=== PATIENT | male | born 2000 | race Caucasian/White ===

== ENCOUNTER 2018-04-05 11:59 | Emergency (ER) | payer MEDICAID ==
[2018-04-05 12:05] VITALS: BP 118/64
--- NOTE | 2018-04-05 12:15 | ER Document Report ---
HPI - HPI Pain Level: 3 Vertical Provider Document - INFECTION CONTROL TRAVEL OUTSIDE OF THE [place] IN LAST 30 DAYS: No Course - Vital Signs Vital signs: Temp Pulse Resp BP Pulse Ox 98.0 F 59 L 16 118/64 97 04/05/18 12:04 04/05/18 12:04 04/05/18 12:04 04/05/18 12:04 04/05/18 12:04 Discharge - Discharge Referrals: LISA HUMPHREYS MD [Primary Care Provider] - Follow up as needed
[2018-04-05] MEDS ORDERED: KETOROLAC TROMETHAMINE 60 MG/2 ML SDV IM ONE (12:22)
--- NOTE | 2018-04-05 12:29 | ER Document Report ---
ED General - General Chief Complaint: Knee Pain Stated Complaint: RIGHT KNEE PAIN Time Seen by Provider: 04/05/18 12:15 Mode of Arrival: Ambulatory Information source: Patient, Relative - sister TRAVEL OUTSIDE OF THE [place] IN LAST 30 DAYS: No - HPI Notes: 18-year-old male presents the ED with complaints of sudden onset right knee pain status post hearing a pop yesterday while he was fishing. Denies any trauma or any injury. Has not tried any icing, elevation, heat because he states "this never works for me". Pain is 6 out of 10, throbbing achy. Patient does have crutches at home which she did use yesterday. Unable to bear full weight. Denies any numbness or tingling down bilateral lower extremities. Reports he has injured his knee previously. Denies any fevers or chills. Worse with ambulation, better with rest. - Related Data Allergies/Adverse Reactions: No Known Allergies Allergy (Unverified 04/05/18 12:00) Past Medical History - General Information source: Patient - Social History Smoking Status: Unknown if Ever Smoked Family History: Reviewed & Not Pertinent Review of Systems - Review of Systems Constitutional: No symptoms reported EENT: No symptoms reported Cardiovascular: No symptoms reported Respiratory: No symptoms reported Gastrointestinal: No symptoms reported Genitourinary: No symptoms reported Male Genitourinary: No symptoms reported Musculoskeletal: See HPI Skin: No symptoms reported Hematologic/Lymphatic: No symptoms reported Neurological/Psychological: No symptoms reported Physical Exam - Vital signs Vitals: Temp Pulse Resp BP Pulse Ox 98.0 F 59 L 16 118/64 97 04/05/18 12:04 04/05/18 12:04 04/05/18 12:04 04/05/18 12:04 04/05/18 12:04 - Notes Notes: PHYSICAL EXAMINATION: GENERAL: Well-appearing, well-nourished and in no acute distress. HEAD: Atraumatic, normocephalic. EYES: Pupils equal round and reactive to light, extraocular movements intact, sclera anicteric, conjunctiva are normal. ENT: Nares patent, oropharynx clear without exudates. Moist mucous membranes. NECK: Normal range of motion, supple without lymphadenopathy LUNGS: Breath sounds clear to auscultation bilaterally and equal. No wheezes rales or rhonchi. HEART: Regular rate and rhythm without murmurs ABDOMEN: Soft, nontender, nondistended abdomen. No guarding, no rebound. No masses appreciated. Musculoskeletal: Normal range of motion, no pitting or edema. No cyanosis. right knee pain with palpation to lateral aspect of knee with noted swelling. negative tere's sign. anterior and posterior drawer test negative. noted pain with medial and lateral aspect. Dtr + 2 in BLE. Full motor and sensory function to BLE equally. No open wounds. No induration or drainage. Strength 5 out of 5 bilaterally equally. Ankle examination normal. Squeeze test negative. Hip examination normal. Pulses + 2 bilaterally and equally.negative squeeze bilaterally and equally. NEUROLOGICAL: Cranial nerves grossly intact. Normal speech, normal gait. Normal sensory, motor exams PSYCH: Normal mood, normal affect. SKIN: Warm, Dry, normal turgor, no rashes or lesions noted. Course - Re-evaluation Re-evalutation: 04/05/18 12:24 Afebrile, vitals stable no distress 18-year-old male presents for evaluation of right knee pain with sudden onset. Right knee x-ray negative for wet read. Patient given 60 mg of Toradol IM,. Patient states he does have crutches at home. Denies any direct trauma or injury to the knee. Advised patient he likely sprained knee, advised to take ibuprofen and Tylenol rotating basis, apply heat 20 minutes on 20 minutes off several times a day. If symptoms remain progressive to follow-up with product info specialist, referral given. I have reevaluated this patient multiple times and no significant life threatening changes, no signs of toxicity, sepsis or peritonitis are noted. The patient and I have discussed the diagnosis and risks, and we agree with discharging home and close follow-up. We also discussed returning to the Emergency Department immediately if new or worsening symptoms occur with the understanding that symptoms and presentations can change. At this time will discharge with return precautions and follow-up recommendations. Verbal discharge instructions given a the bedside and opportunity for questions given. We have discussed the symptoms which are most concerning (e.g., weakness in legs , n/t in legs, changing or worsening pain) that necessitate immediate return. Medication warnings reviewed. All questions and concerns answered by this provider. Patient is in agreement with this plan and has verbalized understanding of return precautions and the need for primary care follow-up in the next 24-72 hours. Patient verbalized understanding of plan of care and agree with plan of care. - Vital Signs Vital signs: Temp Pulse Resp BP Pulse Ox 98.0 F 59 L 16 118/64 97 04/05/18 12:04 04/05/18 12:04 04/05/18 12:04 04/05/18 12:04 04/05/18 12:04 Discharge - Discharge Clinical Impression: Right knee sprain Qualifiers: Encounter type: initial encounter Involved ligament of knee: other ligament Qualified Code(s): S83.8X1A - Sprain of other specified parts of right knee, initial encounter Condition: Good Instructions: Use of Crutches ([facility]), Ice & Elevation ([facility]), Knee Immobilizing Splint ([facility]), Sprained Knee ([facility]) Additional Instructions: You do not have evidence of a fracture on today's xrays. Your pain is likely to do soft tissue swelling and inflammation. This can last up to 6 weeks before completely resolving. You should continue to apply ice to the area regularly, keep the affected area elevated, and take ibuprofen 600mg every 6 hours as needed for pain. Please return if you have worsening pain, weakness, numbness, notice increasing redness or swelling to the area, develop a fever, or have any other symptoms that are concerning to you. Please follow up with the [facility] [address] [place] [id number] Return immediately for any new or worsening symptoms. Follow up with primary care provider, call tomorrow to make followup appointment. Prescriptions: RX: Ibuprofen 600 mg PO QIDP PRN #20 tablet PRN Reason: Referrals: LISA HUMPHREYS MD [ACTIVE STAFF] - Follow up in 3-5 days NAM MONROY DO [ACTIVE STAFF] - Follow up in 1 week
--- NOTE | 2018-04-05 13:10 | RADIOLOGY REPORT (SQ) ---
EXAM DESCRIPTION: KNEE RIGHT 4 VIEWS COMPLETED DATE/TIME: 04/05/2018 12:53 pm REASON FOR STUDY: sudden onset right knee pain, heard a pop x1 day COMPARISON: None. NUMBER OF VIEWS: Four views right knee. LIMITATIONS: None. FINDINGS: There is no acute or significant bone, joint or soft tissue abnormality. OTHER: No other significant finding. IMPRESSION: NORMAL STUDY. TECHNICAL DOCUMENTATION: JOB ID: [id number] Reading location - IP/workstation name: [email or web address]
== END 2018-04-05 13:25 | disposition home or self-care (01) ==
LOC: ER 11:59
DX: S83.91XA Sprain of unspecified site of right knee, initial encounter (principal); M25.561 Pain in right knee; X58.XXXA Exposure to other specified factors, initial encounter
CPT/HCPCS: 99283; 96372; 73564; L1830; J1885

== ENCOUNTER 2018-09-09 20:57 | Emergency (ER) | payer MEDICAID ==
--- NOTE | 2018-09-09 21:37 | ER Document Report ---
ED General - General Chief Complaint: Flu Symptoms Stated Complaint: FLU LIKE SYMPTOMS Time Seen by Provider: 09/09/18 21:22 Mode of Arrival: Ambulatory Information source: Patient Notes: 18-year-old male presents emergency department with complaints of a nonproductive cough, congestion, runny nose, sore throat, difficulty sleeping, myalgias. Patient states that symptoms have been present for the last week. Patient states that his cough is worsening. Denies history of sick contacts. Denies medical problems. Denies chest pain, shortness of breath, abdominal pain. Taking over the counter medication for symptom relief. TRAVEL OUTSIDE OF THE [place] IN LAST 30 DAYS: No - HPI Onset: Last week Onset/Duration: Gradual Quality of pain: Achy Associated symptoms: Body/muscle aches, Rhinnorhea, Sore throat Exacerbated by: Denies Relieved by: Denies Similar symptoms previously: No Recently seen / treated by doctor: No - Related Data Allergies/Adverse Reactions: No Known Allergies Allergy (Unverified 04/05/18 12:00) Past Medical History - General Information source: Patient - Social History Smoking Status: Never Smoker Frequency of alcohol use: None Drug Abuse: None Family History: Reviewed & Not Pertinent Patient has suicidal ideation: No Patient has homicidal ideation: No Renal/ Medical History: Denies: Hx Peritoneal Dialysis Review of Systems - Review of Systems Constitutional: Malaise EENT: Nose congestion, Nose discharge, Throat pain Cardiovascular: No symptoms reported Respiratory: Cough Gastrointestinal: No symptoms reported Genitourinary: No symptoms reported Male Genitourinary: No symptoms reported Musculoskeletal: No symptoms reported Skin: No symptoms reported Hematologic/Lymphatic: No symptoms reported Neurological/Psychological: No symptoms reported -: Yes All other systems reviewed and negative Physical Exam - Vital signs Vitals: Temp Pulse Resp BP Pulse Ox 97.8 F 73 18 134/71 H 98 09/09/18 21:03 09/09/18 21:03 09/09/18 21:03 09/09/18 21:03 09/09/18 21:03 - General Notes: PHYSICAL EXAMINATION: GENERAL: Well-appearing, well-nourished and in no acute distress. HEAD: Atraumatic, normocephalic. EYES: Pupils equal round and reactive to light, extraocular movements intact, sclera anicteric, conjunctiva are normal. ENT: Nares patent, oropharynx clear without exudates. Moist mucous membranes. NECK: Normal range of motion, supple without lymphadenopathy LUNGS: Breath sounds clear to auscultation bilaterally and equal. No wheezes rales or rhonchi. HEART: Regular rate and rhythm without murmurs ABDOMEN: Soft, nontender, nondistended abdomen. No guarding, no rebound. No masses appreciated. Musculoskeletal: Normal range of motion, no pitting or edema. No cyanosis. NEUROLOGICAL: Cranial nerves grossly intact. Normal speech, normal gait. Normal sensory, motor exams PSYCH: Normal mood, normal affect. SKIN: Warm, Dry, normal turgor, no rashes or lesions noted. Course - Re-evaluation Re-evalutation: 09/09/18 22:13 Chest xray does not show an acute process. Likely viral illness. Told patient to continue taking over the counter medication as needed for symptom relief, to follow up with PCP this week, and to return for worsening symptoms. Patient is agreeable with the plan of care. - Vital Signs Vital signs: Temp Pulse Resp BP Pulse Ox 97.8 F 73 18 134/71 H 98 09/09/18 21:03 09/09/18 21:03 09/09/18 21:03 09/09/18 21:03 09/09/18 21:03 Discharge - Discharge Clinical Impression: Viral illness Condition: Good Disposition: HOME, SELF-CARE Instructions: Viral Syndrome ([facility]) Prescriptions: Benzonatate [Tessalon Perles 100 mg Capsule] 100 mg PO ASDIR PRN #15 capsule PRN Reason: Referrals: JAIR JONES MD [ACTIVE STAFF] - Follow up as needed
--- NOTE | 2018-09-09 22:07 | RADIOLOGY REPORT (SQ) ---
EXAM DESCRIPTION: XR CHEST 2 VIEWS COMPLETED DATE/TME: 09/09/2018 21:26 CLINICAL HISTORY: 18 years, Male, cough COMPARISON: None. NUMBER OF VIEWS: 2 TECHNIQUE: Frontal and lateral views of the chest LIMITATIONS: None. FINDINGS: The heart size is normal. Lungs are clear. No pneumothorax IMPRESSION: Negative chest 2010 [facility] [employer]- All Rights Reserved
[2018-09-09 22:28] VITALS: BP 126/68
== END 2018-09-09 22:28 | disposition home or self-care (01) ==
LOC: ER 20:57
DX: B34.9 Viral infection, unspecified (principal); R05 Cough; R09.89 Other specified symptoms and signs involving the circulatory and respiratory systems; J02.9 Acute pharyngitis, unspecified; M79.10 Myalgia, unspecified site; J34.89 Other specified disorders of nose and nasal sinuses; R53.81 Other malaise; R09.81 Nasal congestion
CPT/HCPCS: 71046; 99283